=== PATIENT | male | born 2000 | race Asian ===

== ENCOUNTER 2019-03-24 10:37 | Emergency (ER) | payer BC, OTHER ==
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
[2019-03-24 11:42] VITALS: BP 112/75
== END 2019-03-24 11:42 | disposition home or self-care (01) ==
DX: S70.11XA Contusion of right thigh, initial encounter (principal); S46.911A Strain of unspecified muscle, fascia and tendon at shoulder and upper arm level, right arm, initial encounter; V13.4XXA Pedal cycle driver injured in collision with car, pick-up truck or van in traffic accident, initial encounter; Y92.410 Unspecified street and highway as the place of occurrence of the external cause

== ENCOUNTER → 2019-03-26 | Outpatient (CLI) | payer BC | LOC: BMCIMAGING 16:11 | PROVIDERS: ATTEND Family Medicine | DX: M25.511 Pain in right shoulder (principal) ==